=== PATIENT | male | born 1950 | race Caucasian/White ===

== ENCOUNTER 2020-02-11 19:34 | Inpatient (IN) | payer MEDICARE, OTHER ==
[2020-02-11 21:06] LABS: Hemoglobin 14.4 g/dL (14.0-18.0); Mean Corpuscular HGB CONC 34.6 g/dL (32.0-36.0); Mean Corpuscular Hemoglobin 31.4 pg (27.0-31.0); Mean Corpuscular Volume 90.9 fL (78.0-98.0); Mean Platelet Volume 7.6 fL (7.4-10.4); Platelet Count 149 thou/uL (130-400); Red Blood Cell (RBC) Count 4.58 mill/uL (4.70-6.10); White Blood Cell (WBC) Count 13.7 thou/uL (4.8-10.8)
--- NOTE | 2020-02-11 21:12 | RAD ---
EXAM: Single view of the chest HISTORY: Shortness of breath COMPARISON: 06/08/2019 FINDINGS: Single view of the chest shows an enlarged but stable cardiomediastinal silhouette. The pa tient is status post sternotomy. There is no evidence of consolidation, mass, or pleural effusion. The bones are unremarkable IMPRESSION: Cardiomegaly without evidence of acute cardiopulmonary disease
[2020-02-11 21:26] LABS: ALT (SGPT) 19 U/L (8-55); AST (SGOT) 18 U/L (5-34); Albumin 4.2 g/dL (3.4-4.8); Alkaline Phosphatase 62 U/L (40-110); Anion Gap 17 mmol/L (10-20); BUN (Urea Nitrogen) 16 mg/dL (8.4-25.7); Band 47 % (5-11); Bilirubin, Total 0.8 mg/dL (0.2-1.2); Calc. Creatinine Clearance 0 mL/min (70-130); Calcium 9.4 mg/dL (7.8-10.44); Carbon Dioxide 24 mmol/L (23-31); Chloride 102 mmol/L (98-107); Eosinophils 1 % (0-10); Estimated GFR-MDRD 70; Globulin 3.5 g/dL (2.4-3.5); Glucose 247 mg/dL (80-115); Lymphocytes 1 % (21-51); MDiff Complete? YES; Monocytes 6 % (0-10); Neutrophil 41 % (42-75); Platelet Morphology Comment Appears Adequate; Polychromasia SLIGHT = 2-3 cells (100X) (0-2/hpf); Potassium 3.5 mmol/L (3.5-5.1); Protein, Total 7.7 g/dL (5.8-8.1); Reactive Lymphocytes 4 % (0-10); Reflex for Review?? YES; Sodium 139 mmol/L (136-145)
[2020-02-11] MEDS ORDERED: Sodium Chloride 0.9% 100 ML ONE (21:50)
[2020-02-11] MEDS ORDERED: Cefepime 2 GM VIAL ONE (21:50)
[2020-02-11 22:24] LABS: Bilirubin Negative (Negative); Blood, Urine Negative (Negative); Clarity Clear (Clear); Glucose, Urine (Dipstick) 100 mg/dL (Negative); Ketone, Urine 10 mg/dL (Negative); Leukocyte Negative Leu/uL (Negative); Nitrite Negative (Negative); Protein, Urine (Dipstick) 10 mg/dL (Neg-Trace); Urobilinogen Normal mg/dL (Less than 2)
[2020-02-11] MEDS ORDERED: Clindamycin/D5W 900 mg/50 ml Premix Bag ONE (23:24)
[2020-02-11] MEDS ORDERED: Ondansetron PF 4 MG/2 ML Vial ONE (23:24)
[2020-02-12 00:18] LABS: Lactic Acid 2.9 mmol/L (0.5-2.2)
[2020-02-12 00:37] LABS: SARS-CoV-2 NAA Rapid Test Not Detected (NotDetected)
[2020-02-12] MEDS ORDERED: Guaifenesin DM 100-10/5 ML UDCUP PO PRN (01:28)
[2020-02-12] MEDS ORDERED: Labetalol HCl 100 MG/20 ML VIAL SLOW IVP PRN (01:28)
[2020-02-12] MEDS ORDERED: HYDROcodone/Acetaminophen 5/325 mg Tablet PO PRN (01:28)
[2020-02-12] MEDS ORDERED: cloNIDine 0.1 MG TAB PO PRN (01:28)
[2020-02-12] MEDS ORDERED: Ondansetron PF 4 MG/2 ML Vial IVP PRN (01:28)
[2020-02-12] MEDS ORDERED: Morphine 2 MG/ML VIAL SLOW IVP PRN (01:28)
[2020-02-12] MEDS ORDERED: Acetaminophen 325 MG TAB PO PRN (01:28)
[2020-02-12] MEDS ORDERED: Promethazine HCl 12.5 MG in Sodium Chloride 0.9% 50 ML IVPB PRN (01:28)
[2020-02-12] MEDS ORDERED: Bisacodyl 10 MG SUPP PR PRN (01:29)
[2020-02-12] MEDS ORDERED: Bisacodyl 5 MG TAB PO PRN (01:29)
[2020-02-12] MEDS ORDERED: Sodium Chloride 0.9% 1,000 ML IV SCH (01:30)
[2020-02-12] MEDS ORDERED: Electrolyte Replacement Protoc 1 EACH EACH FS SCH (01:30)
[2020-02-12] MEDS ORDERED: Dextrose 50% Abboject 50 ML SYRINGE SLOW IVP PRN (01:32)
[2020-02-12] MEDS ORDERED: Dextrose 5% in Water 1,000 ML IV PRN (01:32)
--- NOTE | 2020-02-12 01:35 | PDOC.HHP ---
Hospitalist HPI - History of Present Illness Vomiting, rash History of Present Illness: Patient is a 69 year old male with PMH L ear deafness, HTN, HLD, COPD, pulmonary embolism who reports rash to abdomen and R leg, nausea, vomiting x 1 day. He reports vomiting 10 times, 3-4 episodes diarrhea as well. No bleeding, He reports worsening rash around his insulin injection site on his L abdomen for a few days and has been scratching/irritating the site and skin is getting worse. No abdominal pain or dysuria. He reports a wound on the right lower extremity which has also been worsening around a lesion on R posterior leg, he has venous stasis changes chronically both legs. He also has a bedsore on his buttocks. He is insulin-dependent diabetic, reports 60 units long acting insulin taken BID. He has had fevers. He reports chills. He has chronic shortness of breath that is always there, he said it is no worse. He denies any increasing cough. In ED, WBC 13, glucose elevated, lactic acid 3.1. CXR w/ cardiomegaly, no acute changes. Son was exposed to covid, rapid covid test performed and negative. Patient given Hospitalist ROS - Review of Systems Constitutional: reports: fever, chills, weakness, malaise Eyes: denies: pain, vision change, conjunctivae inflammation, eyelid inflammation, redness, other ENT: denies: ear pain, ear discharge, nose pain, nose discharge, nose congestion , mouth pain, mouth swelling, throat pain, throat swelling, other Respiratory: reports: shortness of breath. denies: cough, dry, hemoptysis, SOB with excertion, pleuritic pain, sputum, wheezing, other Cardiovascular: denies: chest pain, palpitations, orthopnea, paroxysmal noc. dyspnea, edema, light headedness, other Gastrointestinal: reports: nausea, vomiting, diarrhea. denies: abdominal pain, constipation, melena, hematochezia, other Genitourinary: denies: dysuria, frequency, incontinence, hematuria, retention, other Musculoskeletal: denies: neck pain, shoulder pain, arm pain, back pain, hand pain, leg pain, foot pain, other Skin: reports: rash, lesions. denies: anthony, bruising, other Neurological: denies: weakness, numbness, incoordination, change in speech, confusion, seizures, other All other systems reviewed; all pertinent +/- noted in HPI/Subj - Medication Medications: Active Medications Generic Name Dose Route Start Last Admin Trade Name Italo PRN Reason Stop Dose Admin Vancomycin HCl 2 gm/ Sodium 500 mls @ 250 mls/hr 02/11/20 23:45 02/12/20 00: 30 Chloride IVPB 02/12/20 03:00 500 mls NOW IRAIDA Administration tamsulosin FriFeb 11, 2020 20:37 PRISCA [place] capsule : Strength - 0.4 mg : ORAL Patient Dose: 0.4 mg Oral once a day (in the evening). gabapentin FriFeb 11, 2020 20:37 PRISCA [place] tablet : Strength - 300 mg : ORAL Patient Dose: 300 mg Oral once a day (in the evening). allopurinol FriFeb 11, 2020 20:37 PRISCA [place] tablet : Strength - 100 mg : ORAL Patient Dose: 100 mg Oral once a day (in the morning). lisinopril FriFeb 11, 2020 20:38 PRISCA [place] tablet : Strength - 10 mg : ORAL Patient Dose: 10 mg Oral once a day (in the morning). furosemide oral FriFeb 11, 2020 20:38 PRISCA [place] tablet : Strength - 20 mg : ORAL Patient Dose: 20 mg Oral once a day (in the morning). fluticasone propion-salmeterol FriFeb 11, 2020 20:39 PRISCA [place] blister with device : Strength - 100 mcg-50 mcg/dose : INHALATION Patient Dose: 50 mcg Inhaler once a day (in the evening). Eliquis FriFeb 11, 2020 20:39 PRISCA [place] tablet : Strength - 5 mg : ORAL Patient Dose: 5 mg Oral 2 times a day. metoprolol succinate FriFeb 11, 2020 20:40 PRISCA [place] tablet extended release 24 hr : Strength - 50 mg : ORAL Patient Dose: 50 mg Oral 2 times a day. atorvastatin FriFeb 11, 2020 20:41 RPISCA [place] tablet : Strength - 20 mg : ORAL Patient Dose: 20 mg Oral once a day (in the evening). Jardiance FriFeb 11, 2020 20:41 PRISCA [place] tablet : Strength - 10 mg : ORAL Patient Dose: 10 mg Oral once a day (in the morning). ranolazine FriFeb 11, 2020 20:42 PRISCA [place] tablet extended release 12 hr : Strength - 500 mg : ORAL Patient Dose: 500 mg Oral 2 times a day. Toujeo Max U-300 SoloStar FriFeb 11, 2020 20:42 PRISCA [place] insulin pen : Strength - 300 unit/mL (3 mL) : [3 mL(s)] : SUBCUTANEOUS Patient Dose: 60 units Subcutaneous once a day (in the morning). clopidogrel FriFeb 11, 2020 20:44 PRISCA [place] tablet : Strength - 75 mg : ORAL Patient Dose: 75 mg Oral once a day (in the morning). Lantus Solostar U-100 Insulin FriFeb 11, 2020 20:46 PRISCA [place] insulin pen : Strength - 100 unit/mL (3 mL) : [15 mL(s)] : SUBCUTANEOUS Patient Dose: 60 units Subcutaneous once a day (in the evening). Hospitalist History - Past Medical History Other Medical History: L ear deafness, HTN, HLD, COPD, pulmonary embolism. - Past Surgical History Past Surgical History: reports: Appendectomy, CABG - Family History Family History: reports: no pertinent history - Social History Other Social History: uses cbd oil - Exam General Appearance: NAD, awake alert Eye: PERRL, anicteric sclera ENT: normocephalic atraumatic, no oropharyngeal lesions, moist mucosa Neck: supple, symmetric, no JVD, no thyromegaly, no lymphadenopathy, no carotid bruit Heart: RRR, no murmur, no gallops, no rubs, normal peripheral pulses Respiratory: CTAB, no wheezes, no rales, no ronchi, normal chest expansion, no tachypnea, normal percussion Gastrointestinal: soft, non-tender, non-distended, normal bowel sounds, no palpable masses, no hepatomegaly, no splenomegaly, no bruit Extremities: no cyanosis, no clubbing, no edema Extremities - other findings: BLE w/ venous stasis ankles, RLE post leg wound w / erythema w/ weeping Skin: normal turgor Skin - other findings: Abdomenal wall erythema and edema L L Q skin no induration Neurological: cranial nerve grossly intact, normal sensation to touch, no weakness, no focal deficits, no new deficit Musculoskeletal: normal tone, normal strength, no muscle wasting Psychiatric: normal affect, normal behavior, A&O x 3 Hospitalist Results - Labs Result Diagrams: 02/11/20 20:56 02/11/20 20:56 Lab results: WBC 13.7 thou/uL (4.8-10.8) H 02/11/20 20:56 Hgb 14.4 g/dL (14.0-18.0) 02/11/20 20:56 Hct 41.7 % (42.0-52.0) L 02/11/20 20:56 MCV 90.9 fL (78.0-98.0) 02/11/20 20:56 Plt Count 149 thou/uL (130-400) 02/11/20 20:56 Band Neuts % (Manual) 47 % (5-11) H 02/11/20 20:56 Sodium 139 mmol/L (136-145) 02/11/20 20:56 Potassium 3.5 mmol/L (3.5-5.1) 02/11/20 20:56 Chloride 102 mmol/L (98-107) 02/11/20 20:56 Carbon Dioxide 24 mmol/L (23-31) 02/11/20 20:56 BUN 16 mg/dL (8.4-25.7) 02/11/20 20:56 Creatinine 1.05 mg/dL (0.7-1.3) 02/11/20 20:56 Glucose 247 mg/dL (80-115) H 02/11/20 20:56 Lactic Acid 2.9 mmol/L (0.5-2.2) H 02/11/20 23:54 Calcium 9.4 mg/dL (7.8-10.44) 02/11/20 20:56 Total Bilirubin 0.8 mg/dL (0.2-1.2) 02/11/20 20:56 AST 18 U/L (5-34) 02/11/20 20:56 ALT 19 U/L (8-55) 02/11/20 20:56 Alkaline Phosphatase 62 U/L (40-110) 02/11/20 20:56 Troponin I 0.017 ng/mL (< 0.028) 02/11/20 20:56 B-Natriuretic Peptide 74.7 pg/mL (0-100) 02/11/20 20:56 Serum Total Protein 7.7 g/dL (5.8-8.1) 02/11/20 20:56 Albumin 4.2 g/dL (3.4-4.8) 02/11/20 20:56 Urine Ketones 10 mg/dL (Negative) A 02/11/20 22:09 Urine Blood Negative (Negative) 02/11/20 22:09 Urine Nitrite Negative (Negative) 02/11/20 22:09 Ur Leukocyte Esterase Negative Ray/uL (Negative) 02/11/20 22:09 Additional comment: VITAL SIGNS Sat Feb 12, 2020 00:38 PRIS[facility] [place] BP: 115/67 MAP: 83 Pulse: 88 Resp: 20 Temp: 98.4 (Oral) Pain: 3 O2 sat: 94 on (Room Air) Time: 02/12/2020 00:38. Hospitalist H&P A/P - Plan Plan: Patient is a 69 year old male with PMH L ear deafness, HTN, HLD, COPD, pulmonary embolism who reports rash to abdomen and R leg, nausea, vomiting x 1 day. # cellulitis R leg, abdominal wall # severe sepsis due to cellulitis Patient with clinicaly cellulitis of RLE and abdominal wall w/ tachypnea, elevated white blood cell count, lactic acid This qualifies him for severe sepsis. The urinalysis is negative for urine infection. X-ray shows no pneumonia. He has multiple areas of skin infection. In ED given vancomycin, cefepime, clindamycin, will continue vancomycin monotherapy for now for purulent cellulitis without obvious abscess. Diarrhea and vomiting likely due to sepsis - admit to floor - continue vancomycin - trend labs - recieved 30 cc/kg bolus, hold further fluids given CXR w/ cardiomegaly, improved already after IVF - consider imaging or surgical consult if signs of abscess develop - COVID swab negative # history of PE - continue eliquis, plavix # HTN - PRN meds ordered, hold scheduled meds given sepsis # DM - continue long acting insulin at 50 units long acting BID, increase to 60 (his normal dose) if sugars high. SSI ordered # HLD - statin # pressure ulcer - wound care consult DVT/GI ppx Full code
[2020-02-12] MEDS ORDERED: Electrolyte Replacement Protocol FS PRN (01:45)
[2020-02-12 03:32] LABS: #Eosinphils 0.1 thou/uL (0.0-0.7); #Lymphocytes 1.2 thou/uL (1.20-3.40); #Monocytes 1.1 thou/uL (0.11-0.59); %Basophils 0.2 % (0.0-1.0); %Eosinophils 1.1 % (0.0-10.0); %Lymphocytes 9.9 % (21.0-51.0); %Monocytes 8.5 % (0.0-10.0); %Neutrophils 80.4 % (42.0-75.0); Hemoglobin 13.1 g/dL (14.0-18.0); Mean Corpuscular HGB CONC 35.1 g/dL (32.0-36.0); Mean Corpuscular Hemoglobin 32.3 pg (27.0-31.0); Mean Corpuscular Volume 92.3 fL (78.0-98.0); Mean Platelet Volume 8.4 fL (7.4-10.4); Platelet Count 137 thou/uL (130-400); RBC Distribution Width 13.2 % (11.5-14.5); Red Blood Cell (RBC) Count 4.04 mill/uL (4.70-6.10); White Blood Cell (WBC) Count 12.5 thou/uL (4.8-10.8)
[2020-02-12 03:52] LABS: Anion Gap 13 mmol/L (10-20); BUN (Urea Nitrogen) 14 mg/dL (8.4-25.7); Calc. Creatinine Clearance 0 mL/min (70-130); Calcium 8.5 mg/dL (7.8-10.44); Carbon Dioxide 25 mmol/L (23-31); Chloride 104 mmol/L (98-107); Estimated GFR-MDRD 77; Glucose 260 mg/dL (80-115); Potassium 3.9 mmol/L (3.5-5.1); Sodium 138 mmol/L (136-145)
[2020-02-12] MEDS ORDERED: Enoxaparin Sodium 40 MG/0.4 ML SYRINGE SC SCH (09:00)
[2020-02-12] MEDS ORDERED: Polyethylene Glycol 3350 17 GM Packet PO SCH (09:00)
[2020-02-12] MEDS ORDERED: Famotidine 20 MG TAB ONE (09:51)
[2020-02-12] MEDS ORDERED: Clopidogrel Bisulfate 75 MG TAB ONE (09:51)
[2020-02-12] MEDS ORDERED: Vancomycin 1 GM/200 ML BAG ONE (10:39)
[2020-02-12] MEDS: Famotidine 20 MG TAB PO SCH ×2 (10:49→20:47)
[2020-02-12] MEDS: Insulin Glargine 50 UNITS in Pre-Filled Syringe 1 EACH SC SCH ×2 (10:50→22:29)
[2020-02-12] MEDS: Clopidogrel Bisulfate 75 MG TAB PO SCH (10:50)
[2020-02-12] MEDS ORDERED: Potassium Chloride 20 MEQ TAB PO SCH (11:00)
[2020-02-12] MEDS ORDERED: Potassium Chloride 20 MEQ TAB ONE (11:07)
[2020-02-12] MEDS ORDERED: Albuterol Sulfate 2.5 mg/3 ml Neb ONE (11:41)
[2020-02-12] MEDS: Apixaban 5 MG TAB PO SCH ×2 (12:45→20:47)
--- NOTE | 2020-02-12 14:21 | PDOC.HOSPP ---
- Subjective Encounter Date: 02/12/20 Encounter Time: 14:20 Subjective: Mr. Thomson was seen today in follow-up of cellulitis and sepsis. He says he feels much better this afternoon. He says the nausea and vomiting has improved/ He says there is a spot on his right leg which bothers him more than the spot on his abdomen. - Objective Result Diagrams: 02/12/20 03:22 02/12/20 03:21 Additional Labs: Accuchecks 02/12/20 09:39 POC Glucose 237 H Hospitalist ROS - Medication Medications: Active Medications Generic Name Dose Route Start Last Admin Trade Name Freq PRN Reason Stop Dose Admin Apixaban 5 mg 02/12/20 09:00 02/12/20 12:45 Eliquis PO 5 mg BID IRAIDA Administration Clopidogrel Bisulfate 75 mg 02/12/20 09:00 02/12/20 10:50 Plavix PO 75 mg DAILY IRAIDA Administration Famotidine 20 mg 02/12/20 09:00 02/12/20 10:49 Pepcid PO 20 mg BID IRAIDA Administration Insulin Glargine 50 units/ 0.5 mls @ 0 mls/hr 02/12/20 09:00 02/12/20 10:50 Miscellaneous Medication SC 0.5 mls BID IRAIDA Administration - Exam Eye: PERRL, anicteric sclera Heart: RRR, no murmur, no gallops, no rubs Respiratory: CTAB, no wheezes, no rales, no ronchi, normal chest expansion, no tachypnea Gastrointestinal: soft (+ mild erythema over the antierior abdomen.), non- distended, normal bowel sounds, no palpable masses Extremities: 2+ LE edema (+ erythema, and chronic venous stasis changes) Hosp A/P (1) Cellulitis of right leg Code(s): L03.115 - CELLULITIS OF RIGHT LOWER LIMB Status: Acute (2) Sepsis Code(s): A41.9 - SEPSIS, UNSPECIFIED ORGANISM Status: Acute (3) Hypertension Code(s): I10 - ESSENTIAL (PRIMARY) HYPERTENSION Status: Chronic (4) COPD (chronic obstructive pulmonary disease) Status: Chronic (5) Morbid obesity Code(s): E66.01 - MORBID (SEVERE) OBESITY DUE TO EXCESS CALORIES Status: Chronic (6) Diabetes mellitus type 2 in obese Code(s): E11.69 - TYPE 2 DIABETES MELLITUS WITH OTHER SPECIFIED COMPLICATION; E66.9 - OBESITY, UNSPECIFIED Status: Chronic (7) Pulmonary embolus Code(s): I26.99 - OTHER PULMONARY EMBOLISM WITHOUT ACUTE COR PULMONALE Status : Chronic - Plan * Cellulitis of the lower extremity, with sepsis- continue broad spectrum antibiotics * Wound care consult * HTN- blood pressure- re-start Metoprolol and Lisinopril * DM-2- re-start his home regimen, and may have to use Lantus in place of Toujeo * COPD- stable * History of PE- patient is on Eliquis * ABDIRASHID- patient can continue his nocturnal CPAP
[2020-02-12] MEDS: HumaLOG 300 UNITS/3 ML VIAL SC PRN (18:00)
[2020-02-12] MEDS ORDERED: Atorvastatin Calcium 40 MG TAB PO SCH (21:00)
[2020-02-13] MEDS: hydrALAZINE 20 MG/ML VIAL SLOW IVP PRN (03:56)
[2020-02-13 04:04] LABS: #Eosinphils 0.3 thou/uL (0.0-0.7); #Lymphocytes 1.5 thou/uL (1.20-3.40); #Monocytes 0.7 thou/uL (0.11-0.59); #Neutrophils 6.1 thou/uL (1.40-6.50); %Basophils 0.1 % (0.0-1.0); %Lymphocytes 17.4 % (21.0-51.0); %Monocytes 7.6 % (0.0-10.0); Hemoglobin 13.2 g/dL (14.0-18.0); Mean Corpuscular HGB CONC 32.5 g/dL (32.0-36.0); Mean Corpuscular Hemoglobin 30.1 pg (27.0-31.0); Mean Corpuscular Volume 92.7 fL (78.0-98.0); Mean Platelet Volume 7.3 fL (7.4-10.4); Platelet Count 134 thou/uL (130-400); RBC Distribution Width 13.4 % (11.5-14.5); Red Blood Cell (RBC) Count 4.38 mill/uL (4.70-6.10); White Blood Cell (WBC) Count 8.7 thou/uL (4.8-10.8)
[2020-02-13 04:17] LABS: Lactic Acid 1.9 mmol/L (0.5-2.2)
[2020-02-13 04:29] LABS: Anion Gap 14 mmol/L (10-20); BUN (Urea Nitrogen) 12 mg/dL (8.4-25.7); Calc. Creatinine Clearance 194 mL/min (70-130); Calcium 8.6 mg/dL (7.8-10.44); Carbon Dioxide 20 mmol/L (23-31); Chloride 105 mmol/L (98-107); Estimated GFR-MDRD 82; Glucose 223 mg/dL (80-115); Potassium 3.9 mmol/L (3.5-5.1); Sodium 135 mmol/L (136-145)
[2020-02-13] MEDS: HumaLOG 300 UNITS/3 ML VIAL SC PRN ×3 (06:19→17:59)
[2020-02-13] MEDS ORDERED: Prevnar 13-Val Conj/PF 0.5 ML SYRINGE IM ONE (09:00)
[2020-02-13] MEDS: Apixaban 5 MG TAB PO SCH ×2 (09:19→23:01)
[2020-02-13] MEDS: Famotidine 20 MG TAB PO SCH ×2 (09:19→23:01)
[2020-02-13] MEDS: Amlodipine 10 MG TAB PO SCH (09:19)
[2020-02-13] MEDS: Clopidogrel Bisulfate 75 MG TAB PO SCH (09:19)
[2020-02-13] MEDS: Insulin Glargine 50 UNITS in Pre-Filled Syringe 1 EACH SC SCH (09:24)
--- NOTE | 2020-02-13 16:06 | PDOC.HOSPP ---
- Subjective Encounter Date: 02/13/20 Encounter Time: 16:03 Subjective: Mr. Thomson was seen today in follow-up of cellulitis with sepsis. He says he feels better. His appetite has improved. He has not had fever today. - Objective Vital Signs & Weight: Vital Signs (12 hours) Temp Pulse Resp BP BP Pulse Ox 02/13/20 12:00 97.6 F 76 18 160/78 H 98 02/13/20 09:19 79 161/83 H 02/13/20 08:00 98.6 F 79 18 161/83 H 98 02/13/20 05:29 183/86 H Weight Weight 383 lb 8 oz I&O: 02/12/20 02/13/20 02/14/20 06:59 06:59 06:59 Intake Total 120 360 Output Total 400 Balance -280 360 Result Diagrams: 02/13/20 03:50 02/13/20 03:50 Additional Labs: Accuchecks 02/13/20 02/13/20 02/12/20 10:47 06:16 21:37 POC Glucose 306 H 222 H 204 H 02/12/20 17:17 POC Glucose 218 H Hospitalist ROS - Medication Medications: Active Medications Generic Name Dose Route Start Last Admin Trade Name Freq PRN Reason Stop Dose Admin Acetaminophen 650 mg 02/12/20 01:28 02/12/20 17:57 Tylenol PO 650 mg Q4H PRN Administration Headache/Fever/Mild Pain (1-3) Amlodipine Besylate 10 mg 02/13/20 09:00 02/13/20 09:19 Norvasc PO 10 mg DAILY IRAIDA Administration Apixaban 5 mg 02/12/20 09:00 02/13/20 09:19 Eliquis PO 5 mg BID IRAIDA Administration Clopidogrel Bisulfate 75 mg 02/12/20 09:00 02/13/20 09:19 Plavix PO 75 mg DAILY IRAIDA Administration Famotidine 20 mg 02/12/20 09:00 02/13/20 09:19 Pepcid PO 20 mg BID IRAIDA Administration Hydralazine HCl 10 mg 02/12/20 01:28 02/13/20 03:56 Apresoline SLOW IVP 10 mg Q6H PRN Administration SBP GREATER THAN 160 Vancomycin HCl 2 gm/ Sodium 500 mls @ 250 mls/hr 02/12/20 20:00 02/13/20 10: 40 Chloride IVPB 02/19/20 22:00 500 mls 0800,2000 IRAIDA Administration Insulin Human Lispro 0 units 02/12/20 01:32 02/13/20 10:51 Humalog SC 11 unit .AGGRESSIVE SLIDING PRN Administration Aggressive Correctional Scale Labetalol HCl 20 mg 02/12/20 01:28 02/12/20 17:57 Normodyne SLOW IVP 20 mg Q4H PRN Administration SBP > 160, use third - Exam Eye: PERRL, anicteric sclera Heart: RRR, no murmur, no gallops, no rubs, normal peripheral pulses Respiratory: CTAB, no wheezes, no rales, no ronchi, normal chest expansion Gastrointestinal: soft, non-tender, non-distended, normal bowel sounds, no palpable masses Extremities: no cyanosis Hosp A/P (1) Cellulitis of right leg Code(s): L03.115 - CELLULITIS OF RIGHT LOWER LIMB Status: Acute (2) Sepsis Code(s): A41.9 - SEPSIS, UNSPECIFIED ORGANISM Status: Acute (3) Hypertension Code(s): I10 - ESSENTIAL (PRIMARY) HYPERTENSION Status: Chronic (4) COPD (chronic obstructive pulmonary disease) Status: Chronic (5) Morbid obesity Code(s): E66.01 - MORBID (SEVERE) OBESITY DUE TO EXCESS CALORIES Status: Chronic (6) Diabetes mellitus type 2 in obese Code(s): E11.69 - TYPE 2 DIABETES MELLITUS WITH OTHER SPECIFIED COMPLICATION; E66.9 - OBESITY, UNSPECIFIED Status: Chronic (7) Pulmonary embolus Code(s): I26.99 - OTHER PULMONARY EMBOLISM WITHOUT ACUTE COR PULMONALE Status : Chronic - Plan * Cellulitis of the lower extremity, with sepsis-improved clinically * Continue local wound care for the lower extremities * HTN- blood pressure- re-start Metoprolol and Lisinopril and continue Amlodipine * DM-2- the dose of his home medication have been adjusted * UA findings noted, and urine culture results are likely from contamination ( multiple organisms, with low colony counts ) * COPD- stable * History of PE- patient is on Eliquis * ABDIRASHID- patient can continue his nocturnal CPAP
[2020-02-13] MEDS ORDERED: Gabapentin 300 MG CAP PO SCH (21:00)
[2020-02-13] MEDS ORDERED: Mometasone Furoate 120 PUFF 220 MCG INH SCH (21:00)
[2020-02-13] MEDS ORDERED: Mometasone Furoate 30 PUFF 220 MCG INH SCH (21:00)
[2020-02-13] MEDS ORDERED: [UNRECOGNIZED DRUG - OTHER] SC SCH (21:00)
[2020-02-13] MEDS ORDERED: INSULIN GLARGINE HUM REC ANLOG 60 UNIT SC SCH (21:00)
[2020-02-13] MEDS ORDERED: Tamsulosin HCl 0.4 MG CAP PO SCH (21:00)
[2020-02-13] MEDS ORDERED: HumaLOG 300 UNITS/3 ML VIAL SC PRN (22:53)
[2020-02-13] MEDS: Insulin Glargine 48 UNITS in Pre-Filled Syringe 1 EACH SC SCH (23:00)
[2020-02-14] MEDS: hydrALAZINE 20 MG/ML VIAL SLOW IVP PRN (00:07)
[2020-02-14 05:02] LABS: #Eosinphils 0.5 thou/uL (0.0-0.7); #Lymphocytes 1.7 thou/uL (1.20-3.40); #Monocytes 0.6 thou/uL (0.11-0.59); #Neutrophils 3.4 thou/uL (1.40-6.50); %Basophils 0.2 % (0.0-1.0); %Eosinophils 8.3 % (0.0-10.0); %Lymphocytes 27.5 % (21.0-51.0); %Monocytes 9.8 % (0.0-10.0); %Neutrophils 54.2 % (42.0-75.0); Hemoglobin 13.3 g/dL (14.0-18.0); Mean Corpuscular HGB CONC 33.9 g/dL (32.0-36.0); Mean Corpuscular Hemoglobin 31.4 pg (27.0-31.0); Mean Corpuscular Volume 92.6 fL (78.0-98.0); Mean Platelet Volume 7.5 fL (7.4-10.4); Platelet Count 134 thou/uL (130-400); RBC Distribution Width 13.1 % (11.5-14.5); Red Blood Cell (RBC) Count 4.25 mill/uL (4.70-6.10); White Blood Cell (WBC) Count 6.2 thou/uL (4.8-10.8)
[2020-02-14 05:13] LABS: Anion Gap 11 mmol/L (10-20); BUN (Urea Nitrogen) 10 mg/dL (8.4-25.7); Calc. Creatinine Clearance 192 mL/min (70-130); Calcium 8.8 mg/dL (7.8-10.44); Carbon Dioxide 25 mmol/L (23-31); Chloride 105 mmol/L (98-107); Estimated GFR-MDRD 86; Glucose 192 mg/dL (80-115); Potassium 3.8 mmol/L (3.5-5.1); Sodium 137 mmol/L (136-145)
[2020-02-14] MEDS: HumaLOG 300 UNITS/3 ML VIAL SC PRN ×2 (06:44→12:07)
[2020-02-14 08:40] LABS: Vancomycin, Trough 12.8 ug/mL
[2020-02-14] MEDS ORDERED: Allopurinol 100 MG TAB PO SCH (09:00)
[2020-02-14] MEDS ORDERED: Empagliflozin 10 MG TAB PO SCH (09:00)
[2020-02-14] MEDS ORDERED: Lisinopril 10 MG TAB PO SCH (09:00)
[2020-02-14] MEDS: Famotidine 20 MG TAB PO SCH (09:17)
[2020-02-14] MEDS: Clopidogrel Bisulfate 75 MG TAB PO SCH (09:17)
[2020-02-14] MEDS: Amlodipine 10 MG TAB PO SCH (09:18)
[2020-02-14] MEDS: Apixaban 5 MG TAB PO SCH (09:18)
[2020-02-14] MEDS: Insulin Glargine 48 UNITS in Pre-Filled Syringe 1 EACH SC SCH (09:35)
--- NOTE | 2020-02-14 12:16 | PDOC.HOSPP ---
- Subjective Encounter Date: 02/14/20 Encounter Time: 12:14 Subjective: Mr. Thomson was seen today in follow-up of cellulitis, and sepsis. He says he feels great. No complaints. - Objective Vital Signs & Weight: Vital Signs (12 hours) Temp Pulse Resp BP Pulse Ox 02/14/20 12:05 96.7 F L 78 18 168/86 H 97 02/14/20 07:35 97.8 F 80 20 132/66 96 02/14/20 03:47 98.3 F 48 L 12 175/84 H 96 Weight Weight 383 lb 8 oz I&O: 02/13/20 02/14/20 02/15/20 06:59 06:59 06:59 Intake Total 120 2910 Output Total 400 3750 Balance -280 -840 Result Diagrams: 02/14/20 04:37 02/14/20 04:37 Additional Labs: Accuchecks 02/14/20 02/13/20 02/13/20 05:59 20:54 16:55 POC Glucose 205 H 260 H 229 H Hospitalist ROS - Medication Medications: Active Medications Generic Name Dose Route Start Last Admin Trade Name Freq PRN Reason Stop Dose Admin Acetaminophen 650 mg 02/12/20 01:28 02/12/20 17:57 Tylenol PO 650 mg Q4H PRN Administration Headache/Fever/Mild Pain (1-3) Allopurinol 100 mg 02/14/20 09:00 02/14/20 09:18 Zyloprim PO 100 mg DAILY IRAIDA Administration Amlodipine Besylate 10 mg 02/13/20 09:00 02/14/20 09:18 Norvasc PO 10 mg DAILY IRAIDA Administration Apixaban 5 mg 02/12/20 09:00 02/14/20 09:18 Eliquis PO 5 mg BID IRAIDA Administration Clopidogrel Bisulfate 75 mg 02/12/20 09:00 02/14/20 09:17 Plavix PO 75 mg DAILY IRAIDA Administration Famotidine 20 mg 02/12/20 09:00 02/14/20 09:17 Pepcid PO 20 mg BID IRAIDA Administration Gabapentin 300 mg 02/13/20 21:00 02/13/20 23:01 Neurontin PO 300 mg HS IRAIDA Administration Hydralazine HCl 10 mg 02/12/20 01:28 02/14/20 00:07 Apresoline SLOW IVP 10 mg Q6H PRN Administration SBP GREATER THAN 160 Insulin Glargine 48 units/ 0.48 mls @ 0 mls/hr 02/13/20 21:00 02/14/20 09:35 Miscellaneous Medication SC 0.48 mls BID IRAIDA Administration Insulin Human Lispro 0 units 02/12/20 01:32 02/14/20 12:07 Humalog SC 6 unit .AGGRESSIVE SLIDING PRN Administration Aggressive Correctional Scale Insulin Human Lispro 0 units 02/13/20 22:53 02/13/20 23:02 Humalog SC 3 unit .BEDTIME SLIDING SC PRN Administration Bedtime Correctional Scale Labetalol HCl 20 mg 02/12/20 01:28 02/12/20 17:57 Normodyne SLOW IVP 20 mg Q4H PRN Administration SBP > 160, use third Lisinopril 10 mg 02/14/20 09:00 02/14/20 09:18 Zestril PO 10 mg DAILY IRAIDA Administration Metoprolol Succinate 50 mg 02/13/20 21:00 02/14/20 09:18 Toprol Xl PO 50 mg BID IRAIDA Administration Miscellaneous Medication 10 mg 02/14/20 09:00 02/14/20 09:19 Jardiance PO 10 mg DAILY IRAIDA Administration Mometasone Furoate 1 puff 02/13/20 21:00 02/13/20 19:00 Asmanex INH 1 puff HS IRAIDA Administration Ranolazine 500 mg 02/13/20 21:00 02/14/20 09:18 Ranexa PO 500 mg BID IRAIDA Administration Tamsulosin HCl 0.4 mg 02/13/20 21:00 02/13/20 23:01 Flomax PO 0.4 mg HS IRAIDA Administration - Exam Eye: PERRL Heart: RRR, no murmur, no gallops, no rubs, normal peripheral pulses Respiratory: CTAB, no wheezes, no rales, no ronchi, normal chest expansion Gastrointestinal: soft, non-tender, normal bowel sounds Extremities: 2+ LE edema (Chronic venous stasis changes, and mild erythema both lower extemities) Hosp A/P (1) Cellulitis of right leg Code(s): L03.115 - CELLULITIS OF RIGHT LOWER LIMB Status: Acute (2) Sepsis Code(s): A41.9 - SEPSIS, UNSPECIFIED ORGANISM Status: Acute (3) Hypertension Code(s): I10 - ESSENTIAL (PRIMARY) HYPERTENSION Status: Chronic (4) COPD (chronic obstructive pulmonary disease) Status: Chronic (5) Morbid obesity Code(s): E66.01 - MORBID (SEVERE) OBESITY DUE TO EXCESS CALORIES Status: Chronic (6) Diabetes mellitus type 2 in obese Code(s): E11.69 - TYPE 2 DIABETES MELLITUS WITH OTHER SPECIFIED COMPLICATION; E66.9 - OBESITY, UNSPECIFIED Status: Chronic (7) Pulmonary embolus Code(s): I26.99 - OTHER PULMONARY EMBOLISM WITHOUT ACUTE COR PULMONALE Status : Chronic - Plan * Cellulitis of the lower extremity, much improved * He can be transitioned to an oral antibiotic * Anticipate home later this evening
[2020-02-14 13:24] VITALS: BMI 49.2
[2020-02-14] MEDS ORDERED: Vancomycin 1.5 GRAM/300 ML BAG 1.5 GM in Premix Bag 1 BAG IVPB SCH (17:00)
[2020-02-14 17:15] VITALS: BP 138/78; TEMP 97.7
--- NOTE | 2020-02-15 03:48 | DIS ---
DATE OF ADMISSION: 02/11/2020 DATE OF DISCHARGE: 02/14/2020 DISCHARGE DISPOSITION: Home. DISCHARGE DIAGNOSES: 1. Cellulitis of the right lower extremity as well as abdominal wall cellulitis. 2. Hypertension. 3. Hyperlipidemia. 4. Chronic obstructive pulmonary disease. 5. History of pulmonary embolism. 6. Morbid obesity. DISCHARGE MEDICATIONS: 1. Doxycycline 100 mg p.o. b.i.d. for 10 days. 2. Florastor 250 mg daily. 3. Flomax 0.4 mg at bedtime. 4. Ranexa 500 mg p.o. b.i.d. 5. Metoprolol-XL 50 mg p.o. twice daily. 6. Lisinopril 10 mg daily. 7. Lantus insulin 60 units twice a day. 8. Gabapentin 300 mg at bedtime. 9. Furosemide 20 mg p.o. daily. 10. Flovent Diskus inhaled daily. 11. Jardiance 10 mg daily. 12. Benadryl 25 mg q.8h as needed. 13. Atorvastatin 20 mg p.o. at bedtime. 14. Eliquis 5 mg p.o. b.i.d. 15. Allopurinol 100 mg p.o. daily. CODE STATUS: Full code. ALLERGIES: TO CLINDAMYCIN AND PENICILLIN. HOSPITAL COURSE: Mr. Thomson is a pleasant 69-year-old gentleman, who was admitted to the hospital after he is having complaints of nausea and vomiting and generalized weakness. He also had a fairly high fever of 102.8 and met sepsis criteria. By the time he was seen in the ER and given fluid resuscitation, his symptoms actually improved. It appeared as if he has a cellulitis on the abdominal wall as well as the right lower extremity. He has chronic venous stasis changes and is morbidly obese placing him at risk. He was admitted and started on broad-spectrum antibiotics. He improved over the course of the next couple of days and was eventually transitioned to an oral antibiotic and is being discharged home on doxycycline. He is to follow up with his primary care physician in 1 to 2 weeks and unfortunately he is at high risk of readmission primarily as a result of his body habitus as he has a BMI of 49.2. Job ID: [id number]
[2020-02-15] MEDS ORDERED: Saccharomyces boulardii 250 MG CAP PO SCH (09:00)
== END 2020-02-14 18:19 | disposition home or self-care (01) | DRG 872 ==
LOC: ERS 19:34 → ERHOLD 23:17 → 2NO 02-12 14:53
PROVIDERS: ADMIT Internal Medicine; ATTEND Internal Medicine
DX: A41.9 Sepsis, unspecified organism (principal); L03.115 Cellulitis of right lower limb; L03.311 Cellulitis of abdominal wall; Z68.42 Body mass index [BMI] 45.0-49.9, adult; R65.20 Severe sepsis without septic shock; Z20.828 Contact with and (suspected) exposure to other viral communicable diseases; L89.322 Pressure ulcer of left buttock, stage 2; E66.01 Morbid (severe) obesity due to excess calories; I10 Essential (primary) hypertension; E78.5 Hyperlipidemia, unspecified; H91.92 Unspecified hearing loss, left ear; G47.33 Obstructive sleep apnea (adult) (pediatric); J44.9 Chronic obstructive pulmonary disease, unspecified; Z86.711 Personal history of pulmonary embolism; Z88.0 Allergy status to penicillin; Z88.1 Allergy status to other antibiotic agents; Z79.01 Long term (current) use of anticoagulants; Z95.1 Presence of aortocoronary bypass graft; Z79.899 Other long term (current) drug therapy; Z79.4 Long term (current) use of insulin; Z90.49 Acquired absence of other specified parts of digestive tract
CPT/HCPCS: 36415; 36416; 71045; 80048; 80053; 80202; 81003; 83605; 83880; 84484; 85025; 85060; 87040; 87077; 87086; 93005; 96365; 96366; 96367; 96375; J0360; J0692; J1815; J2405; J3370; J3490; J7030; J7611; U0002